=== PATIENT | male | born 2000 | race Caucasian/White ===

== ENCOUNTER 2021-02-20 06:38 | Day surgery (SDC) | payer MEDICAID, SELFPAY ==
[~2021-02-20] VITALS: Ht 180.3 cm; Wt 83.9 kg
[2021-02-20] MEDS ORDERED: HYDROmorphone 2 MG/ML VIAL IVP PRN (09:30)
[2021-02-20] MEDS ORDERED: HYDROmorphone 1 MG/ML INJ. CARTRIDGE IVP PRN (09:30)
[2021-02-20] MEDS ORDERED: ONDANSETRON HCL 4 MG/2 ML VIAL IVP PRN ×2 (09:30→11:15)
[2021-02-20] MEDS ORDERED: LR 1,000 ML IV SCH (09:30)
[2021-02-20] MEDS ORDERED: KETOROLAC TROMETHAMINE 30 MG VIAL IVP PRN ×2 (09:30)
[2021-02-20] MEDS ORDERED: OXYMETAZOLINE HCL 0.05% NASAL SPRAY NS ONE (10:48)
[2021-02-20] MEDS ORDERED: BACITRACIN 1 GM OINT TP ONE (10:48)
[2021-02-20] MEDS ORDERED: METOCLOPRAMIDE HCL 10 MG/2 ML VIAL ONE (10:48)
[2021-02-20] MEDS ORDERED: LIDOCAINE/EPI 1% 1:100000 20 ML VIAL INJ ONE (10:48)
[2021-02-20] MEDS ORDERED: ROCURONIUM BROMIDE 10 MG/ML (ZEMURON) ONE (10:48)
[2021-02-20] MEDS ORDERED: MIDAZOLAM HCL 5 MG/ML VIAL (VERSED) IV ONE (10:48)
[2021-02-20] MEDS ORDERED: PROPOFOL 200MG/ 20ML VIAL (DIPRIVAN) IV ONE (10:48)
[2021-02-20] MEDS ORDERED: PHENYLEPHRINE HCL 10 MG/ML VIAL (NEOSYNEPHRINE) ONE (10:48)
[2021-02-20] MEDS ORDERED: NS 1000 ML IV.SOLN IV ONE (10:48)
[2021-02-20] MEDS ORDERED: ONDANSETRON HCL 4 MG/2 ML VIAL ONE (10:48)
[2021-02-20] MEDS ORDERED: NS IRRIG SOLN 1000 ML IR ONE (10:48)
[2021-02-20] MEDS ORDERED: SEVOFLURANE 15 MIN GAS INH ONE (10:48)
[2021-02-20] MEDS ORDERED: GLYCOPYRROLATE 0.2 MG/ML VIAL ONE (10:48)
[2021-02-20] MEDS ORDERED: fentaNYL CITRATE/PF 100 MCG/2 ML AMP ONE (10:48)
[2021-02-20] MEDS ORDERED: ACETAMINOPHEN 500 MG TABLET PO PRN (11:15)
[2021-02-20] MEDS ORDERED: HYDROcodone/ACETAMIN 5-325 MG TAB (NORCO/ VICODIN) PO PRN (11:15)
[2021-02-20] MEDS ORDERED: ONDANSETRON 4 MG ODT TAB PO PRN (11:15)
[2021-02-20 13:09] VITALS: BP_SYST 124
== END 2021-02-20 12:45 | disposition home or self-care (01) ==
LOC: SDS 06:38 → SMU 06:39 → SDS 12:45
PROVIDERS: ATTEND Otolaryngology
DX: J34.2 Deviated nasal septum (principal); J34.3 Hypertrophy of nasal turbinates; Z20.822 Contact with and (suspected) exposure to COVID-19
CPT/HCPCS: 36415; J2250; J2370; J2405; J2704; J2765; J3010; J3490; J7030